=== PATIENT | male | born 1990 | race Two or more races ===

== ENCOUNTER 2017-03-22 06:27 | Emergency (ER) | payer SELFPAY ==
[~2017-03-22] VITALS: Ht 177.8 cm; Wt 81.6 kg
[2017-03-22 06:35] VITALS: BP 115/79
--- NOTE | 2017-03-22 06:37 | NUR ---
26 YO MALE BIB SELF FROM HOME, PT C/O RUQ ABD PAIN X 1 HOUR, PT DENIES N/V OR DIARRHEA. PT AMBULATED TO ER BED, SKIN WARM AND DRY, RR EVEN AND UNLABORED. PT GOWNED, PLACED ON PURCHASING EXPEDITOR. AWAITING ORDERS FROM PROVIDER, WILL CONTINUE TO MONITOR
== END 2017-03-22 07:05 | disposition home or self-care (01) ==
LOC: ER 06:30
DX: K59.00 Constipation, unspecified (principal); F11.10 Opioid abuse, uncomplicated; T40.2X5A Adverse effect of other opioids, initial encounter
CPT/HCPCS: 99282; A4606; Z7610